=== PATIENT | male | born 1960 | race Caucasian/White ===

== ENCOUNTER → 2021-07-12 18:43 | Outpatient (CLI) | payer OTHER, SELFPAY ==
[2021-07-12 19:20] LABS: Basophils # 0.1 K/mm3 (0-0.2); Basophils % 0.5 % (0.1-2.0); Eosinophils # 0.1 K/mm3 (0.0-0.4); Eosinophils % 1.2 % (0.1-12.0); Hematocrit 39.3 % (42.0-52.0); Hemoglobin 13.6 g/dL (14.1-18.0); Lymphocytes # 2.4 K/mm3 (0.7-4.5); Lymphocytes % 26.7 % (10-50); Mean Corpuscular HGB Conc 34.6 g/dL (31.8-35.4); Mean Corpuscular Hemoglobin 32.2 pg (27.0-31.2); Mean Corpuscular Volume 92.9 fl (80-94); Mean Platelet Volume 9.1 fl (7.4-10.4); Monocytes # 0.6 K/mm3 (0.1-1.0); Monocytes % 6.3 % (1.7-9.3); Neutrophils % 65.3 % (37.0-80.0); Platelet Count 268 K/mm3 (142-424); Red Blood Count 4.23 M/mm3 (4.60-6.20); White Blood Count 9.2 K/mm3 (4.8-10.8)
[2021-07-12 19:30] LABS: Alanine Aminotransferase 16 U/L (12-78); Albumin Level 4.2 g/dl (3.5-5.0); Albumin/Globulin Ratio 1.6 (1.1-1.8); Alkaline Phosphatase 64 U/L (38-126); Anion Gap 11.1 mEq/L (5-15); Aspartate Amino Transferase 33 U/L (17-59); Bilirubin,Total 0.3 mg/dl (0.2-1.3); Blood Urea Nitrogen 13 mg/dl (9-20); Calcium 9.3 mg/dl (8.4-10.2); Carbon Dioxide 28 mmol/L (22.0-30.0); Chloride 101 mmol/L (98-107); Chol/HDL Ratio 4.2 (1-3.5); Cholesterol 198 mg/dl (140-200); Estimated Glomerular Filt Rate 86 ml/min (>60); GFR (African American) 103 ML/MIN (>60); Globulin 2.7 g/dL (1.3-3.2); Glucose 75 mg/dl (74-100); HDL Cholesterol 47 mg/dl (40-60); Potassium 4.1 mmoL/L (3.5-5.1); Sodium 136 mmol/L (136-145); Total Protein,Serum 6.9 g/dl (6.3-8.2); Triglycerides 201 mg/dl (30-150); VLDL Cholesterol 40 mg/dL (0-40)
[2021-07-12 19:41] LABS: Direct LDL Cholesterol 134.12 mg/dL (100-129)
[2021-07-12 19:48] LABS: T4 (Thyroxine) 10.6 ug/dl (5.53-11.0)
[2021-07-12 19:58] LABS: 25-OH Vitamin D, Total 22.8 ng/mL (30-100)
[2021-07-12 20:02] LABS: Prostate Specific Ag Screen 3.2 ng/ml (0.0-4.0)
== END ==
PROVIDERS: Visit Provider Nurse Practitioner Family
DX: Z00.00 Encounter for general adult medical examination without abnormal findings (principal); E55.9 Vitamin D deficiency, unspecified; Z72.0 Tobacco use; Z12.5 Encounter for screening for malignant neoplasm of prostate
CPT/HCPCS: 80053; 80061; 82306; 84436; 84443; 85025; G0103

== ENCOUNTER → 2021-07-22 12:56 | Outpatient (CLI) | payer OTHER, SELFPAY ==
--- NOTE | 2021-07-22 12:58 | XR_ITS ---
PROCEDURE: XR HIP RT 2-3V W/PELVIS CLINICAL INDICATION: hip pain COMPARISON: No exams were available for comparison FINDINGS: Moderate osteoarthritic changes are present involving the right hip. No acute fracture or dislocation. No lytic or blastic change. Well-circumscribed calcific density is present at the lateral aspect of the acetabulum and could represent an old fracture or unfused ossification center. Mild osteoarthritis also noted of the left hip. IMPRESSION: No acute fracture. Moderate osteoarthritic change of the right hip with old fracture versus os acetabulum laterally Dictated by: Prashant Smallwood MD 07/22/2021 13:45 Prashant Smallwood MD in OV 07/22/2021 13:45
== END ==
PROVIDERS: PCP Emergency Medicine; Visit Provider Emergency Medicine
DX: M25.551 Pain in right hip (principal)
CPT/HCPCS: 73502

== ENCOUNTER → 2021-09-27 11:32 | Outpatient (CLI) | payer OTHER, SELFPAY ==
[2021-09-27 18:09] LABS: Amphetamine/Metha Screen,Urine Negative ng/ml (<1000)
[2021-09-27 18:10] LABS: Barbiturates Screen,Urine Negative ng/ml (<200)
[2021-09-27 18:11] LABS: Benzodiazepines Screen,Urine Negative ng/ml (<200); Cannabinoid Screen,Urine Negative ng/ml (<50)
[2021-09-27 18:13] LABS: Cocaine Screen,Urine Negative ng/ml (<300); Methadone Screen,Urine Negative ng/ml (<300)
[2021-09-27 18:14] LABS: Opiate Screen,Urine Negative ng/ml (<300); Phencyclidine Screen,Urine Negative ng/ml (<25)
== END ==
PROVIDERS: Visit Provider Nurse Practitioner Family
DX: M25.551 Pain in right hip (principal); G89.29 Other chronic pain
CPT/HCPCS: 80305

== ENCOUNTER → 2021-10-25 10:57 | Outpatient (CLI) | payer OTHER, SELFPAY ==
[2021-10-25 14:22] LABS: Amphetamine/Metha Screen,Urine Negative ng/ml (<1000)
[2021-10-25 14:23] LABS: Barbiturates Screen,Urine Negative ng/ml (<200)
[2021-10-25 14:24] LABS: Benzodiazepines Screen,Urine Negative ng/ml (<200)
[2021-10-25 14:25] LABS: Cannabinoid Screen,Urine Negative ng/ml (<50); Cocaine Screen,Urine Negative ng/ml (<300)
[2021-10-25 14:26] LABS: Methadone Screen,Urine Negative ng/ml (<300)
[2021-10-25 14:27] LABS: Opiate Screen,Urine Negative ng/ml (<300); Phencyclidine Screen,Urine Negative ng/ml (<25)
== END ==
PROVIDERS: Visit Provider Nurse Practitioner Family
DX: Z79.899 Other long term (current) drug therapy (principal)
CPT/HCPCS: 80305

== ENCOUNTER → 2021-11-01 13:43 | Outpatient (CLI) | payer OTHER, SELFPAY ==
[2021-11-01 17:22] LABS: Amphetamine/Metha Screen,Urine Negative ng/ml (<1000)
[2021-11-01 17:23] LABS: Barbiturates Screen,Urine Negative ng/ml (<200); Benzodiazepines Screen,Urine Negative ng/ml (<200)
[2021-11-01 17:24] LABS: Cannabinoid Screen,Urine Negative ng/ml (<50)
[2021-11-01 17:25] LABS: Cocaine Screen,Urine Negative ng/ml (<300); Methadone Screen,Urine Negative ng/ml (<300)
[2021-11-01 17:26] LABS: Opiate Screen,Urine Negative ng/ml (<300)
[2021-11-01 17:28] LABS: Phencyclidine Screen,Urine Negative ng/ml (<25)
== END ==
PROVIDERS: Visit Provider Nurse Practitioner Family
DX: Z79.899 Other long term (current) drug therapy (principal)
CPT/HCPCS: 80305; 80361; G0480

== ENCOUNTER → 2021-11-22 10:17 | Outpatient (CLI) | payer OTHER, SELFPAY ==
--- NOTE | 2021-11-22 10:23 | XR_ITS ---
FINAL REPORT CLINICAL HISTORY: rt hip pain FINDINGS: 2 views of the right hip and an AP pelvis were obtained. There is no acute fracture or dislocation. There is asymmetric osteophyte formation along the lateral acetabular margin of the right hip. There is moderate right hip joint space narrowing. There are no soft tissue abnormalities. IMPRESSION: Mild to moderate asymmetric osteoarthritis of the right hip. Reviewed, Interpreted and Dictated by Janusz Hobbs MD Transcribed by Kobe Aleman Authenticated by Janusz Hobbs MD on 11/22/2021 11:33:04 AM [facility]
== END ==
PROVIDERS: PCP Nurse Practitioner Family; Visit Provider Orthopaedic Surgery
DX: M25.551 Pain in right hip (principal)
CPT/HCPCS: 73502

== ENCOUNTER → 2021-12-25 15:52 | Outpatient (CLI) | payer OTHER, SELFPAY ==
[2021-12-25 18:05] LABS: Amphetamine/Metha Screen,Urine Negative ng/ml (<1000); Barbiturates Screen,Urine Negative ng/ml (<200)
[2021-12-25 18:06] LABS: Benzodiazepines Screen,Urine Negative ng/ml (<200)
[2021-12-25 18:07] LABS: Cannabinoid Screen,Urine Negative ng/ml (<50)
[2021-12-25 18:08] LABS: Cocaine Screen,Urine Negative ng/ml (<300); Methadone Screen,Urine Negative ng/ml (<300)
[2021-12-25 18:11] LABS: Opiate Screen,Urine Positive ng/ml (<300)
[2021-12-25 18:12] LABS: Phencyclidine Screen,Urine Negative ng/ml (<25)
== END ==
PROVIDERS: PCP Nurse Practitioner Family; Visit Provider Nurse Practitioner Family
DX: M25.551 Pain in right hip (principal)
CPT/HCPCS: 80305

== ENCOUNTER → 2023-01-14 10:53 | Outpatient (POV) | payer OTHER, SELFPAY ==
--- NOTE | 2023-01-14 11:20 | EXP.PAIN.OV ---
HPI Data of Consult Patient: new to practice Consult date: 01/14/23 Requesting Physician: Sobeida Agarwal APRN Primary Care Provider: Magalie Rausch APRN Consult Narrative History of present illness: Mr. Santos is a 62 year old male who presents today as a new patient. He is a referral from Pierce Pham's office. Today he rates his pain a 6 out of 10. Patient states his pain is all in his right hip that is related to an injury approximately 6 years ago where he was hit by a bull. Patient does describe this as a aching sensation with occasional electric-like sensations that is worse with increased activity. He does state though since he has been prescribed pain medications the electrical shocklike sensations have been much better. He does also state that he notices clicking with range of motion exercises of his right hip. Patient does state the pain interferes with his ability perform activities of daily living such as cooking and cleaning. Patient has been seen by Dr. Agarwal who is recommending hip replacement however the patient would like to see about more conservative therapies first. Patient has tried ukto-sny-gfdfjut medications such as Tylenol and ibuprofen along with heat and ice and topicals with no additional relief. Patient has been prescribed Percocet 10 mg 3 times a day from an outside provider. Patient does state that this does help. Patient has not had physical therapy. Patient states that he is very active and exercises daily. 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 Patient denies any previous surgery. His Ernie is [id number]. Its been reviewed and appropriate. CC: Sobeida Agarwal APRN [facility] Disclaimer: The information contained in this section may have been updated after the patient was seen, as this information can be updated by other users. Social History Smoking Status: Current some day smoker alcohol intake: never current occupational status: employed Travel in the last 8 weeks: None household members: spouse housing: house Review of Systems Review of Systems Review of systems:: pertinent systems reviewed and negative unless documented below Review of systems (narrative): Review of Systems: General: No recent weight changes, no fever, no sleep disturbances Respiratory: No cough, no shortness of air, no recurring pulmonary infections Cardiovascular/peripheral vascular: No chest pain, no palpitations, no edema, no shortness of breath Gastrointestinal: No new onset incontinence, normal bowel movements reported Genitourinary: No new onset incontinence Musculoskeletal: Right hip pain Psychiatric: [Normal mood/affect] Neurological: [Denies weakness in extremities], [denies balance issues] Meds Home Medications and Allergies Home Medications Medication Instructions Recorded Confirmed Type diclofenac sodium 1 % topical gel 2 g topical QID #100 grams 07/12/21 01/28/22 Rx (Voltaren Arthritis Pain) ergocalciferol (vitamin D2) 1,250 50,000 unit PO QWEEK #7 caps 07/18/21 01/28/22 Rx mcg (50,000 unit) capsule oxycodone-acetaminophen 5 mg-325 1 tab PO BID #60 tabs 12/25/21 01/28/22 Rx mg tablet (Percocet) New Prescriptions to Start Prescriptions: Allergies Allergy/AdvReac Type Severity Reaction Status Date / Time No Known Allergies Allergy Verified 01/28/22 10:20 Objective Narrative: Physical Exam: General: Alert and oriented x3, no acute distress, pleasant and cooperative Lungs: Respirations even and unlabored, symmetrical chest expansion Eyes: PERRL Musculoskeletal: Flexion and extension of right hip somewhat guarded secondary to pain Neurological: Speech clear, no gross sensory deficit Oswestry index score of 18 Additional findings Additional findings: FINAL REPORT CLINICAL HISTORY: rt hip pain FINDINGS: 2 view
[2023-01-14 11:56] VITALS: BP 129/89; PULSE 77; RESP 18; O2SAT 97; BMI 35.5
== END ==
PROVIDERS: PCP Nurse Practitioner Family; Visit Provider Nurse Practitioner Family
DX: M16.11 Unilateral primary osteoarthritis, right hip (principal); M25.551 Pain in right hip; G89.29 Other chronic pain
CPT/HCPCS: 99202; G0463

== ENCOUNTER 2023-02-03 08:42 | Day surgery (SDC) | payer OTHER, SELFPAY ==
[2023-02-03 08:54] VITALS: BP 152/85; PULSE 73; RESP 18; TEMP 36.6; O2SAT 97; BMI 33.0
[2023-02-03 09:19] VITALS: BP 159/89; PULSE 67; RESP 18; O2SAT 97
[2023-02-03 09:20] VITALS: BP 159/89; PULSE 67; RESP 18; O2SAT 97
[2023-02-03 09:28] VITALS: BP 147/81; PULSE 62; RESP 18; O2SAT 97
--- NOTE | 2023-02-03 09:33 | P.PCN_ITS ---
Procedure Date: 02/03/23 Time: 09:30 Anesthesiologist:: Arron Valderrama CRNA Complications:: None Pre-procedure Diagnosis:: Osteoarthritis right hip. Post-procedure Diagnosis:: Same. Indications for Procedure:: Patient is a very pleasant 62-year-old male that comes our clinic today for an initial right intra-articular hip injection. Patient describes his right hip pain as constant, dull, aching. Patient rates his pain 7/10. Patient reports pain increases with ambulation. Patient has difficulty transitioning from sitting to standing position due to pain in the right anterior hip. Procedure Details:: Details of the procedure were explained to the patient. The patient was taken to procedure room placed in the supine position. The area over the right hip was cleaned using chlorhexidine as a cleansing solution. Using fluoroscopy g uidance a 3 and half inch 22-gauge spinal needle was used to access the right hip joint without difficulty. After negative aspiration 3 cc of 1% lidocaine +3 cc of 0.25% Marcaine and 40 mg of Depo-Medrol was injected. Needle was withdrawn. Band-Aid applied. Patient tolerated procedure without difficulty. There are no complications. Plan and Disposition:: Patient was discharged without incident.
== END 2023-02-03 09:28 | disposition home or self-care (01) ==
PROVIDERS: PCP Nurse Practitioner Family; Visit Provider Nurse Anesthetist, Certified Registered
DX: M16.11 Unilateral primary osteoarthritis, right hip (principal)
CPT/HCPCS: 20610; 77002; J1040

== ENCOUNTER → 2023-02-18 09:54 | Outpatient (POV) | payer OTHER, SELFPAY ==
[2023-02-18 09:59] VITALS: BP 151/85; PULSE 63; RESP 20; BMI 32.8
--- NOTE | 2023-02-18 10:01 | EXP.PAIN.SOA ---
[facility] Pain Management SOAP Note Subjective:: Patient is a pleasant 62-year-old male who presents today for follow-up of right intra-articular hip injection on 02/03/2023. We are currently treating the patient for right hip pain, right hip osteoarthritis. Today he rates his pain a 2 out of 10. Patient states that he has had at least 60% improvement following this injection and feels like it is still continuing to provide additional relief. He states that he does not feel like he has as achy of sensations on a daily basis and that he has noticed the clicking or catching sensation in his hip is not there currently. He states he has been able to increase his activity with decreased pain symptoms. Patient is currently prescribed Percocet 10 mg 3 times a day from an outside provider. His Ernie is [id number]. Its been reviewed and appropriate. Review of Systems: General: No recent weight changes, no fever, no sleep disturbances Respiratory: No cough, no shortness of air, no recurring pulmonary infections Cardiovascular/peripheral vascular: No chest pain, no palpitations, no edema, no shortness of breath Gastrointestinal: No new onset incontinence, normal bowel movements reported Genitourinary: No new onset incontinence Musculoskeletal: Right hip pain Psychiatric: [Normal mood/affect] Neurological: [Denies weakness in extremities], [denies balance issues] Objective:: Physical Exam: General: Alert and oriented x3, no acute distress, pleasant and cooperative Lungs: Respirations even and unlabored, symmetrical chest expansion Eyes: PERRL Musculoskeletal: Flexion and extension of right hip somewhat guarded secondary to pain, [antalgic gait noted] Neurological: Speech clear, no gross sensory deficit Assessment:: Right hip pain, osteoarthritis right hip Plan:: Patient has had significant improvement following his intra-articular hip injection and does not require any additional injective therapy at this time. Patient will return to clinic in 1 month for reevaluation of symptoms and plan of care. Patient has been instructed to contact the clinic with any concerns before the next appointment. Dr. Garcia has reviewed this note and agrees with this plan of care. This note was dictated using voice recognition software and make contain errors or omissions. [facility] Disclaimer: The information contained in this section may have been updated after the patient was seen, as this information can be updated by other users. Medical History Arthritis HLD (hyperlipidemia) Surgical History H/O removal of cyst Family History (Updated 02/03/23 @ 08:54 by Adri Santiago RN) Other No significant family history Social History Smoking Status: Current some day smoker alcohol intake: never current occupational status: other Travel in the last 8 weeks: None household members: spouse housing: house
== END ==
PROVIDERS: Visit Provider Nurse Practitioner Family
DX: M16.11 Unilateral primary osteoarthritis, right hip (principal); M25.551 Pain in right hip
CPT/HCPCS: 99212; G0463

== ENCOUNTER → 2023-03-19 09:24 | Outpatient (POV) | payer OTHER, SELFPAY ==
--- NOTE | 2023-03-19 09:32 | A.OFFVIS_ITS ---
[facility] Pain Management SOAP Note Subjective:: Patient is a pleasant 62-year-old male who presents today for 1 month follow-up. We are currently treating the patient for right hip pain, right hip osteoarthritis. Today he rates his pain a 5 out of 10. Patient previously had a right intra-articular hip injection on 02/03/2023. Previously he stated at least 60% improvement from that injection and today he still states that he feels like it is continuing to provide additional relief. He states he has been able to increase his activity with decreased pain and feels more functional overall. He does state that he still feels like the clicking or catching sensation in his hip has not been present like what it was previously. He is currently prescribed Percocet 10 mg 3 times a day from an outside provider. His Ernie is [phone]. Its been reviewed and appropriate. Review of Systems: General: No recent weight changes, no fever, no sleep disturbances Respiratory: No cough, no shortness of air, no recurring pulmonary infections Cardiovascular/peripheral vascular: No chest pain, no palpitations, no edema, no shortness of breath Gastrointestinal: No new onset incontinence, normal bowel movements reported Genitourinary: No new onset incontinence Musculoskeletal: Right hip pain Psychiatric: [Normal mood/affect] Neurological: [Denies weakness in extremities], [denies balance issues] Objective:: Physical Exam: General: Alert and oriented x3, no acute distress, pleasant and cooperative Lungs: Respirations even and unlabored, symmetrical chest expansion Eyes: PERRL Musculoskeletal: Flexion and extension of lumbar [spine] somewhat guarded secondary to pain, [antalgic gait noted] Neurological: Speech clear, no gross sensory deficit Assessment:: Right hip pain, right hip osteoarthritis Plan:: Patient continues to do well from his hip intra-articular injection and does not require any additional injective therapy at this time. Patient will return to clinic in 3 months for reevaluation of symptoms and plan of care. Patient has been instructed to contact the clinic with any concerns before the next appointment. Dr. Garcia has reviewed this note and agrees with this plan of care. This note was dictated using voice recognition software and make contain errors or omissions. [facility] Disclaimer: The information contained in this section may have been updated after the patient was seen, as this information can be updated by other users. Medical History Arthritis HLD (hyperlipidemia) Surgical History H/O removal of cyst Family History (Updated 02/03/23 @ 08:54 by Adri Santiago RN) Other No significant family history Social History Smoking Status: Current some day smoker alcohol intake: never current occupational status: other Travel in the last 8 weeks: None household members: spouse housing: house
[2023-03-19 10:27] VITALS: BP 123/72; PULSE 69; RESP 18; O2SAT 97; BMI 32.8
== END ==
PROVIDERS: Visit Provider Nurse Practitioner Family
DX: M16.11 Unilateral primary osteoarthritis, right hip (principal); M25.551 Pain in right hip
CPT/HCPCS: 99212; G0463

== ENCOUNTER → 2023-06-17 09:07 | Outpatient (POV) | payer OTHER, SELFPAY ==
--- NOTE | 2023-06-17 09:19 | EXP.PAIN.SOA ---
[facility] Pain Management SOAP Note Subjective:: Patient is a pleasant 62-year-old male who presents today for 3-month follow-up. We are currently treating the patient for right hip pain, osteoarthritis. Today he rates his pain a 6 out of 10. Patient states that he has not had any new injury or trauma since our last visit. Patient does state that the intra-articular hip injection that he received back in January has now worn off and he is back to his baseline. Patient does describe this pain as an aching, throbbing sensation with occasional sharp shocking sensations that run down his upper leg. Patient does also states he noticed a clicking sensation with range of movement or ambulation. He does state the pain will interfere with his ability to perform activities of daily living such as cooking and cleaning. Patient did previously have at least 60% improvement from the prior hip injection. He is interested in repeating this injection. He is currently managed with Percocet 10 mg 3 times a day from an outside provider. He denies any side effects from this medication. His Ernie has been reviewed and is appropriate. Review of Systems: General: No recent weight changes, no fever, no sleep disturbances Respiratory: No cough, no shortness of air, no recurring pulmonary infections Cardiovascular/peripheral vascular: No chest pain, no palpitations, no edema, no shortness of breath Gastrointestinal: No new onset incontinence, normal bowel movements reported Genitourinary: No new onset incontinence Musculoskeletal: Right hip pain Psychiatric: [Normal mood/affect] Neurological: [Denies weakness in extremities], [denies balance issues] Objective:: Physical Exam: General: Alert and oriented x3, no acute distress, pleasant and cooperative Lungs: Respirations even and unlabored, symmetrical chest expansion Eyes: PERRL Musculoskeletal: Flexion and extension of right hip somewhat guarded secondary to pain, [antalgic gait noted] Neurological: Speech clear, no gross sensory deficit Assessment:: Right hip pain, right hip osteoarthritis Plan:: Patient is experiencing worsening pain in his right hip with limited range of motion. Patient did previously have a intra-articular hip injection back in January that provided 60% improvement lasting several months. I have discussed with the patient that he may benefit from repeat intra-articular hip injection. Risk and benefits were discussed with the patient and he would like to proceed forward with this plan of care. Patient will be scheduled for a right hip intra-articular injection. Patient is requesting a copy of his note be sent to his primary care provider who does prescribe his pain medication. We will send this over to [facility] office. Patient has been instructed to contact the clinic with any concerns before the next appointment. Dr. Garcia has reviewed this note and agrees with this plan of care. This note was dictated using voice recognition software and make contain errors or omissions. [facility] Disclaimer: The information contained in this section may have been updated after the patient was seen, as this information can be updated by other users. Medical History Arthritis HLD (hyperlipidemia) Surgical History H/O removal of cyst Family History (Updated 02/03/23 @ 08:54 by Adri Santiago RN) Other No significant family history Social History Smoking Status: Current some day smoker alcohol intake: never current occupational status: other Travel in the last 8 weeks: None household members: spouse housing: house
[2023-06-17 10:07] VITALS: BP 141/84; PULSE 71; RESP 18; O2SAT 96; BMI 35.5
== END ==
PROVIDERS: Visit Provider Nurse Practitioner Family
DX: M16.11 Unilateral primary osteoarthritis, right hip (principal); M25.551 Pain in right hip
CPT/HCPCS: 99212; G0463

== ENCOUNTER 2023-07-07 11:18 | Day surgery (SDC) | payer OTHER, SELFPAY ==
[2023-07-07 11:31] VITALS: BP 147/83; PULSE 71; RESP 16; TEMP 36.5; O2SAT 98; BMI 31.2
[2023-07-07 11:46] VITALS: BP 137/79; PULSE 73; O2SAT 97
[2023-07-07 11:47] VITALS: BP 137/79; PULSE 61; O2SAT 97
[2023-07-07 11:50] VITALS: BP 138/78; PULSE 62; RESP 16; O2SAT 98
--- NOTE | 2023-07-07 11:54 | P.PCN_ITS ---
Procedure Date: 07/07/23 Time: 11:30 Anesthesiologist:: Arron Valderrama CRNA Complications:: None Pre-procedure Diagnosis:: DJD right hip. Osteoarthritis right hip. Chronic right hip pain. Post-procedure Diagnosis:: Same. Indications for Procedure:: Patient is a pleasant 62-year-old male comes our clinic today for intra- articular right hip injection. Patient has responded very well to this injection in the past. He complains of right hip pain with ambulation. Difficulty with abduction and abduction. Patient rates his pain 7/10. Patient reports today he has a PCP prescribes him Percocet 10 mg 1 p.o. 3 times daily. However, he reports his PCP has relocated. He has been having d ifficulty locating her for prescription refill. Patient states he has been taking this for 1 to 2 years. He is inquiring regarding narcotic prescription from our clinic if in fact he is unable to reach her. I informed the patient we do not do prescriptions in the procedure clinic. This will need to be brought up at his follow-up visit. Procedure Details:: Details of the procedure were explained to the patient. The patient was taken to procedure room placed in the supine position. The area over the right hip was cleaned using chlorhexidine as a cleansing solution. Using fluoroscopy guidance a 3 and half inch 22-gauge spinal needle was used to access the right hip joint without difficulty. After negative aspiration 3 cc of 1% lidocaine +3 cc of 0.25% Marcaine and 40 mg of Depo-Medrol was injected. Needle was withdrawn. Band-Aid applied. Patient tolerated procedure without difficulty. There are no complications. Plan and Disposition:: Patient was discharged without incident.
== END 2023-07-07 11:50 | disposition home or self-care (01) ==
PROVIDERS: PCP Nurse Practitioner Family; Visit Provider Nurse Anesthetist, Certified Registered
DX: M16.11 Unilateral primary osteoarthritis, right hip (principal); M25.551 Pain in right hip; G89.29 Other chronic pain
CPT/HCPCS: 20610; 77002; J1030

== ENCOUNTER → 2023-07-29 14:31 | Outpatient (POV) | payer OTHER, SELFPAY ==
[2023-07-29 16:13] VITALS: BP 130/83; PULSE 74; RESP 18; O2SAT 94; BMI 35.5
--- NOTE | 2023-07-29 16:27 | A.OFFVIS_ITS ---
[facility] Pain Management SOAP Note Subjective:: Patient is a pleasant 62-year-old male who presents today for follow-up of intra-articular right hip injection on 07/07/2023. We are currently treating the patient for osteoarthritis right hip, degenerative joint disease right hip, chronic right hip pain. Today he rates his pain a 5 out of 10. Patient does state that the hip injection did help however he feels like he has not been able to gauge how much it did actually improve due to not being on his prescribed pain medications over the last month. Patient was currently managed with Percocet 10 mg 3 times a day from Eneida Rausch however she recently changed jobs and has not been able to send in a new prescription. Patient states that she had stated that she was trying to get all her paperwork taken care of and therefore has not been able to prescribe at this time. Patient states that he did talk to her and that she was requesting if we could send in a 1 month prescription of this medication until she was able to start prescribing this medication again for the patient. Patient states that he has been on this medication for over a year and it has significantly improved his pain symptoms. Patient states in the past he has tried multiple pain medications and they did not work as well and he is requesting if possible that this exact prescription be sent in. His Ernie has been reviewed and is appropriate. Review of Systems: General: No recent weight changes, no fever, no sleep disturbances Respiratory: No cough, no shortness of air, no recurring pulmonary infections Cardiovascular/peripheral vascular: No chest pain, no palpitations, no edema, no shortness of breath Gastrointestinal: No new onset incontinence, normal bowel movements reported Genitourinary: No new onset incontinence Musculoskeletal: Right hip pain Psychiatric: [Normal mood/affect] Neurological: [Denies weakness in extremities], [denies balance issues] Objective:: Physical Exam: General: Alert and oriented x3, no acute distress, pleasant and cooperative Lungs: Respirations even and unlabored, symmetrical chest expansion Eyes: PERRL Musculoskeletal: Flexion and extension of lumbar [spine] somewhat guarded secondary to pain, [antalgic gait noted] Neurological: Speech clear, no gross sensory deficit Assessment:: Osteoarthritis right hip, degenerative joint disease right hip, chronic right hip pain Plan:: I have discussed with Dr. Garcia regarding taking over this medication. Dr. Garcia is agreeable to sending in a 1 month supply of this medication until his PCP can take back over this prescription. I will send in a 1 month supply of Percocet 10 mg 3 times a day. Patient will return to clinic in 1 month for reevaluation of symptoms and plan of care. Patient has been advised of risks of oversedation with the prescribed medication. Narcan has been offered to the patient in the event of oversedation. Patient has been advised that a family member should also be educated regarding administration of Narcan. Patient has been instructed to contact the clinic with any concerns before the next appointment. Dr. Garcia has reviewed this note and agrees with this plan of care. This note was dictated using voice recognition software and make contain errors or omissions. [facility] Disclaimer: The information contained in this section may have been updated after the patient was seen, as this information can be updated by other users. Medical History Arthritis HLD (hyperlipidemia) Surgical History H/O removal of cyst Family History Other No significant family history Social History Smoking Status: Current some day smoker alcohol intake: never current occupational status: other Travel in the last 8 weeks: None household members: spouse housing: house
== END | disposition home or self-care (01) ==
PROVIDERS: PCP Nurse Practitioner Family; Visit Provider Nurse Practitioner Family
DX: M16.11 Unilateral primary osteoarthritis, right hip (principal); M25.551 Pain in right hip; G89.29 Other chronic pain
CPT/HCPCS: 99212; G0463

== ENCOUNTER 2023-08-28 09:20 | Outpatient (POV) | payer MEDICARE, OTHER, SELFPAY ==
--- NOTE | 2023-08-28 09:54 | A.OFFVIS_ITS ---
[facility] Pain Management SOAP Note Subjective:: Patient is a pleasant 62-year-old male that comes our clinic today for follow-up visit regarding chronic right hip pain he describes as constant, dull, aching. Patient is status post 2 intra-articular right hip injections. Each injection providing 2 to 3 weeks of relief. Patient states he has been informed by orthopedic surgery he should undergo total hip replacement on the right side. Patient has been receiving Percocet 10 mg 1 p.o. 3 times daily from a clinic in [place] where he lives. However, his last prescription for Percocet 10 mg 1 p.o. 3 times daily was written from our clinic. I had a long discussion with the patient today regarding the need to have his hip replaced. I personally injected his right hip twice and was noted on the x-ray the DJD condition of the right hip. I informed the patient today we would not be continuing his prescription of Percocet 10 mg 1 p.o. 3 times daily. I do not feel this is in his best interest to continue. I highly recommend he follow-up with orthopedic surgery for total hip replacement. I offered the patient to set up the appointm ent for him at a surgeon of his choice. He told me he wanted to do some research prior to scheduling appointment. His Ernie has been reviewed and appropriate. Objective:: Patient is awake alert Trinity x 3. No acute distress. Flexion-extension lumbar spine somewhat guarded secondary to pain. Deep tendon reflexes upper lower extremities normal. Motor strength upper lower extremities normal. There is no gross sensory deficit. Gait is normal Assessment:: DJD right hip. Chronic right hip pain. Plan:: Patient will find orthopedic surgery consultation on his own. Again, I offered to help him expedite the process for orthopedic surgery consultation. However, patient did not want me to help. [facility] Disclaimer: The information contained in this section may have been updated after the patient was seen, as this information can be updated by other users. Medical History Arthritis HLD (hyperlipidemia) Surgical History H/O removal of cyst Family History Other No significant family history Social History Smoking Status: Current some day smoker alcohol intake: never substance use type: denies use current occupational status: other Travel in the last 8 weeks: None household members: spouse housing: house
[2023-08-28 09:59] VITALS: BP 133/86; PULSE 68; RESP 18; O2SAT 98; BMI 33.7
== END 2023-08-28 23:59 ==
PROVIDERS: PCP Nurse Practitioner Family; Visit Provider Nurse Anesthetist, Certified Registered
DX: M16.11 Unilateral primary osteoarthritis, right hip (principal); M25.551 Pain in right hip; G89.29 Other chronic pain
CPT/HCPCS: 99212; G0463

== ENCOUNTER 2024-03-16 10:00 | Outpatient (RCR) | payer MEDICARE, SELFPAY | END 2024-03-16 10:05 | disposition home or self-care (01) | LOC: PT 10:00 | PROVIDERS: Visit Provider Physician Assistant | DX: Z96.641 Presence of right artificial hip joint (principal) | CPT/HCPCS: 97110; 97163; 97530 ==

== ENCOUNTER 2024-07-22 13:32 | Outpatient (CLI) | payer MEDICARE, SELFPAY ==
--- NOTE | 2024-07-22 13:38 | CT_ITS ---
FINAL REPORT TECHNIQUE: Axial CT images of the chest were obtained without contrast. Low-dose protocol was utilized. This study was performed with techniques to keep radiation doses as low as reasonably achievable (ALARA). Individualized dose reduction techniques using automated exposure control or adjustment of mA and/or kV according to the patient's size were employed. CLINICAL HISTORY: SCREENING SMOKES 1 PK PER DAY X 50 YRS COMPARISON: None FINDINGS: CT CHEST WITHOUT, LOW DOSE SCREENING CT Di Vol: 2.90 mGy DLP: 122.20 mGy*cm There is no mediastinal mass or adenopathy. Calcified left hilar lymph node is noted. The heart size is normal. There is no pleural or pericardial effusion. The lung windows show a tiny nodule in the anterior right middle lobe measuring 5 mm on image 60 of series 4. There is a 5 mm nodule deep in the right costophrenic sulcus on image 77 of series 4. Limited images of the upper abdomen demonstrate no acute findings. IMPRESSION: LR Category 2: 12 month follow-up low-dose chest CT is recommended per Fleischner criteria. Reviewed, Interpreted and Dictated by Janusz Hobbs MD Transcribed by Rosalina Rico Authenticated and [facility]
== END 2024-07-22 23:59 | disposition home or self-care (01) ==
LOC: RAD 13:33
PROVIDERS: PCP Family Medicine; Visit Provider Family Medicine
DX: F17.210 Nicotine dependence, cigarettes, uncomplicated (principal); Z12.2 Encounter for screening for malignant neoplasm of respiratory organs
CPT/HCPCS: 71271